=== PATIENT | female | born 1965 | race Caucasian/White ===

== ENCOUNTER → 2016-12-25 | Outpatient (CLI) | payer OTHER ==
[~2016-12-25] MED LIST: ALBUTEROL MININEB NEB; COMBIVENT U/D3 M2 IH; COREG3.125 MG PO; LASIX20 MG PO; LISINOPRIL5 MG PO; LORTAB 7.5-5001 TAB PO; PREDNISONE PO; SYMBICORT INH; TYLENOL325 M1 PO; ULTRAM; VICODIN 5/500 T1 TAB
--- NOTE | ~2016-12-25 | CT55 ---
[facility] A Service of [facility] & [facility] RADIOLOGY TEXT RESULTS PATIENT: DAYSI TOLBERT LOCATION: [facility] : 65 UNIT #: [id number] AGE: [address]: Jacinta Krause SEX: F ORDER DR: [id number] [address] [address] [id number] O MR#: [id number] Acc #: [id number] NAME: DAYSI TOLBERT. : 1965 SEX: F STUDY DATE/TIME: 12/25/2016 11:44 UNIT: [facility] ROOM: STUDY DESCRIPTION: CT Chest W Con Attending Physician: Jacinta Krause A.P.R.N. Referring Physician: Jacinta Krause A.P.R.N. Ordering Physician: Jacinta Krause A.P.R.N. Primary Care Physician: Gurdeep Jesus M.D. MEDICAL IMAGING REPORT This report is preliminary unless electronic signature is present. EXAM CT chest with contrast INDICATIONS Pneumonia. Patient was diagnosed in July [address] scan of the chest where she was noted to have multiple tree-in-bud infiltrates. More focal consolidation was seen on PA and lateral chest radiographs performed in August and September 2016. TECHNIQUE Axial CT images were obtained from the thoracic inlet through the dome of the diaphragm following the administration of intravenous contrast material. Following this, 3-D reformatted images were obtained. This CT exam was performed with one or more of the following radiation dose reduction techniques: automatic exposure control, adjustment of mA and/or kV according to patient size, and iterative reconstruction. FINDINGS Previously identified tree-in-bud infiltrates seen particularly throughout the right lung appears significantly improved when compared to the prior examination. There is chronic-appearing scarring identified at the left lung base with elevation of the left hemidiaphragm with associated bronchovascular crowding. A few scattered pulmonary nodules are seen within the right lung. Many of these are actually stable when compared to an exam dating back to November 2011. There is a pleural-based nodule within the right lower lobe measuring about 5 mm in size which I do not clearly identify on the prior studies. While it is favored to be benign, I would suggest short-term CT followup in 6 months given background of emphysematous changes. The thyroid gland is somewhat heterogeneous appearance. Trachea and esophagus appear within normal limits. There is aneurysmal dilatation of the ascending thoracic aorta which measures up to 4.2 cm in diameter. [facility] A Service of [facility] & [facility] RADIOLOGY TEXT RESULTS PATIENT: DAYSI TOLBERT LOCATION: [facility] : 65 UNIT #: [id number] AGE: [address]: Jacinta Krause SEX: F ORDER DR: remainder of the thoracic aorta measures within normal size limits, I do not see any pleural or pericardial effusion. Images through the upper abdomen do not demonstrate any acute abnormalities. Review of bony windows does not demonstrate any aggressive osseous abnormalities. Again, posterior disc osteophyte complex is noted AT T11-T12. IMPRESSION 1. Previously identified tree-in-bud infiltrates have significantly improved when compared to the exam from July 2016. There is some scattered pulmonary nodules seen within the right lung which has been unchanged when compared to exams and back to 2011. The exception is a 5 mm pleural-based nodule within the right lower lobe which I also do not see on the prior CT from July 2016. I suspect it is probably benign but would suggest short-term CT followup in 6 months. 2. Elevation of the left hemidiaphragm associated bronchovascular crowding. This appearance is stable when compared to the July 2016 exam although this was not present on the prior study from November 2011. 3. Aneurysmal dilatation of the ascending thoracic aorta measuring up to 4.2 cm. 1. Dictated by... Karrie Barreto M.D. THIS IS AN ELECTRONICALLY VERIFIED REPORT Karrie Barreto M.D. at 12/26/2016 5:27 PM AFF/to TD: 12/25/2016 18:13 JOB #: [id number] MEDICAL IMAGING REPORT
== END | disposition home or self-care (01) ==
LOC: SCT 11:16
DX: J45.909 Unspecified asthma, uncomplicated (principal); I50.9 Heart failure, unspecified; R06.02 Shortness of breath; I71.2 Thoracic aortic aneurysm, without rupture; R91.8 Other nonspecific abnormal finding of lung field; J98.6 Disorders of diaphragm
CPT/HCPCS: 71260; Q9967

== ENCOUNTER → 2017-01-09 | Outpatient (CLI) | payer OTHER ==
--- NOTE | ~2017-01-09 | ST ---
Unit #: [id number] #: [id number] Patient: DAYSI TOLBERT [id number] [address] [place], [place] [address] [id number] O MR#: [id number] NAME: DAYSI TOLBERT : 1965 SEX: F STUDY DATE/TIME: 01/09/2017 UNIT: [facility] ROOM: STUDY DESCRIPTION: Combined stress and ECG Attending Physician: Syed Samuels M.D. Referring Physician: Syed Samuels M.D. Primary Care Physician: Gurdeep Jesus M.D. CARDIOLOGY REPORT EXAM Stress nuclear and ECG combined. INDICATIONS Valvular heart disease, PVCs. SUMMARY The patient exercised on a Waylon protocol to maximal effort. The patient completed 5 minutes and 45 seconds of exercise. Heart rate increased from 88 to 162 (95%) and blood pressure increased to 170/100 to 200/114. The resting ECG is abnormal with flattened T waves and AVL. With stress there were no diagnostic ST shifts, no significant dysrhythmias, no heart block. Isolated PVCs were noted but were not recorded. There was typical shortness of breath but no chest pain. Technetium 99 Cardiolite 11.69 and 31.2 mCi were injected at rest and stress respectively. Appropriate views were obtained. FINDINGS This study was adequate. The ventricle was small. There intestinal artifact both a rest and stress. Otherwise perfusion is normal and equivalent between rest and stress. Apical thinning is also noted. Planar images showed no significant patient motion either at rest or stress. There is no significant lung uptake, LV or RV enlargement. End-diastolic volume is 80 mL, ejection fraction is 54% with no wall motion abnormalities. Summed stress score is a 3, summed difference score is 2. Changes involve primarily border detection at the base. IMPRESSION 1. Myocardial perfusion scan show no ischemia or infarction. 2. Normal wall motion with excellent ejection fraction. 3. Significant resting hypertension with normal blood pressure response. 4. Normal heart rate response to exercise. 5. Moderately severe deconditioning based on the patient's age. 6. Based on this study, recommend careful antihypertensive therapy. 7. Will discuss with patient at the next visit. 8. No anti-ischemic therapy changes needed at this time. 9. No interventional therapy needed at this time. Dictated by... Syed Samuels M.D. Unit #: [id number] #: [id number] Patient: DAYSI TOLBERT NGA/ts TD: 01/13/2017 07:56 JOB #: [id number] CARDIOLOGY REPORT Page 1 of 1 X Syed Samuels MD CARDIOLOGY REPORT
--- NOTE | ~2017-01-09 | TH ---
Unit #: [id number] #: [id number] Patient: DAYSI TOLBERT [id number] [address] [address] [id number] O MR#: [id number] NAME: DAYSI TOLBERT : 1965 SEX: F STUDY DATE/TIME: 01/09/2017 UNIT: CN ROOM: STUDY DESCRIPTION: Stress nuclear/ECG Attending Physician: Syed Samuels M.D. Referring Physician: Syed Samuels M.D. Primary Care Physician: Gurdeep Jesus M.D. CARDIOLOGY REPORT Result text under ECG portion. Please see this order for result text. Dictated by... Chinyere Sanchez/ts TD: 01/13/2017 08:11 JOB #: [id number] CARDIOLOGY REPORT Page 1 of 1 X Syed Samuels MD CARDIOLOGY REPORT
== END | disposition home or self-care (01) ==
LOC: CNUC 08:16
DX: I50.22 Chronic systolic (congestive) heart failure (principal)
CPT/HCPCS: 78452; 93017; A9500